=== PATIENT | female | born 1960 | race Caucasian/White ===

== ENCOUNTER 2018-10-08 03:07 | Inpatient (IN) | payer BC ==
[2018-10-08] MEDS ORDERED: SODIUM CHLORIDE 0.9% 1,000 ML IV STA (03:14)
[2018-10-08] MEDS ORDERED: NALOXONE 0.4 MG/ML 1 ML VIAL IV PRN ×2 (03:35→14:06)
[2018-10-08 03:51] LABS: Appearance,Urine Clear (Clear); Basophils % (A) 0 %; Bilirubin,Urine Negative (Negative); Blood,Urine Negative (Negative); Color,Urine Light Yellow; Eosinophils # (A) 0.5 k/uL (0-0.7); Eosinophils % (A) 4 %; Glucose,Urine (UA) Negative (Negative); HCT 37.5 % (34.0-46.0); HGB 12.7 gm/dL (11.4-16.0); Ketones,Urine Negative (Negative); Leukocyte Esterase,Urine Negative (Negative); Lymphocytes # (A) 1.3 k/uL (1.0-4.8); Lymphocytes % (A) 12 %; MCH 30.2 pg (25.0-35.0); MCHC 33.9 g/dL (31.0-37.0); MCV 89.1 fL (80.0-100.0); Mean Platelet Volume 5.9; Monocytes # (A) 0.3 k/uL (0-1.0); Monocytes % (A) 3 %; Neutrophils # (A) 8.9 k/uL (1.3-7.7); Neutrophils % (A) 80 %; Nitrite,Urine Negative (Negative); PH, Urine 6.5 (5.0-8.0); Platelet Count 287 k/uL (150-450); Protein,Urine Negative (Negative); RBC 4.21 m/uL (3.80-5.40); RDW 13.4 % (11.5-15.5); Specific Gravity,Urine 1.018 (1.001-1.035); Urobilinogen,Urine <2.0 mg/dL (<2.0); WBC 11.1 k/uL (3.8-10.6)
[2018-10-08 03:59] LABS: ALT 30 U/L (9-52); AST 21 U/L (14-36); Albumin 3.9 g/dL (3.5-5.0); Alkaline Phosphatase 31 U/L (38-126); Anion Gap 8 mmol/L; Blood Urea Nitrogen 13 mg/dL (7-17); Calcium 8.9 mg/dL (8.4-10.2); Carbon Dioxide 26 mmol/L (22-30); Chloride 107 mmol/L (98-107); Glucose 105 mg/dL (74-99); Lipase 61 U/L (23-300); Sodium 141 mmol/L (137-145); Total Bilirubin 0.5 mg/dL (0.2-1.3); Total Protein 6.3 g/dL (6.3-8.2)
[2018-10-08] MEDS ORDERED: MORPHINE SULFATE 4 MG/ML SYRINGE IV PRN (04:02)
[2018-10-08] MEDS ORDERED: ONDANSETRON 4 MG/2 ML VIAL IVP PRN (04:02)
[2018-10-08 04:03] LABS: INR 0.9 (<1.2); Partial Thromboplastin Time 22.9 sec (22.0-30.0); Prothrombin Time 10.1 sec (9.0-12.0)
--- NOTE | 2018-10-08 04:15 | ED ---
Abdominal Pain HPI - General Chief Complaint: Abdominal Pain Stated Complaint: Abdominal Pain Time Seen by Provider: 10/08/18 03:13 Source: patient Mode of arrival: EMS - History of Present Illness Initial Comments: Crystal is a pleasant 57-year-old female who was transferred to our facility from an outside emergency department for further evaluation and management of perforated diverticulitis. Patient reports that she began having abdominal pain on Aug 23, on Aug 25 she saw her PCP and was given a clinical diagnosis of diverticulitis. She was prescribed antibiotics at that time which she completed. Patient reports that on Sep 25 she again developed lower abdominal pain identical to previous, she again saw her PCP and was prescribed Cipro/ Flagyl. She took both for 7 days but discontinued the Flagyl due to GI upset, she completed the final dose of Cipro on 10/06. Patient reports that on October 07 she was driving to get her taxes done and she developed severe worsening of her abdominal pain, pain was in the same lower abdominal location is her diverticulitis. Patient called her primary care physician who advised her to seek care in the nearest emergency department. Patient saw an outside facility where labs were unremarkable but computed tomography scan revealed descending colon diverticulitis with microperforations and scattered free air with no evidence of abscess. Patient was given IV Cipro and Flagyl and per her request transferred to our facility for further management. - Related Data Allergies Allergy/AdvReac Type Severity Reaction Status Date / Time No Known Allergies Allergy Verified 10/08/18 03:56 Review of Systems ROS Statement: Those systems with pertinent positive or pertinent negative responses have been documented in the HPI. ROS Other: All systems not noted in ROS Statement are negative. Past Medical History Past Medical History: Hypertension History of Any Multi-Drug Resistant Organisms: None Reported Past Surgical History: Cholecystectomy Additional Past Surgical History / Comment(s): Right shoulder surgery, bilat wrist surgery Past Psychological History: No Psychological Hx Reported Smoking Status: Never smoker Past Alcohol Use History: None Reported Past Drug Use History: None Reported General Exam - General Exam Comments Initial Comments: Physical Exam GENERAL: Patient is well-developed and well-nourished. Patient is nontoxic and well- hydrated and is in no distress. HENT: Normocephalic, Atraumatic. EYES: PERRL, EOMI PULMONARY: Unlabored respirations. No audible rales rhonchi or wheezing was noted. CARDIOVASCULAR: There is a regular rate and rhythm without any murmurs gallops or rubs. ABDOMEN: Soft, normal active bowel sounds Tenderness to palpation left lower quadrant SKIN: Skin is clear with no lesions or rashes and otherwise unremarkable. : Deferred NEUROLOGIC: Patient is alert and oriented x3. Moving all extremities spontaneously MUSCULOSKELETAL: Normal extremities with adequate strength and full range of motion. No lower extremity swelling or edema. No calf tenderness. PSYCHIATRIC: Normal psychiatric evaluation. Limitations: no limitations Course Vital Signs 10/08/18 03:12 Temperature 98.9 F Pulse Rate 80 Respiratory 19 Rate Blood Pressure 160/99 O2 Sat by Pulse 95 Oximetry Medical Decision Making - Medical Decision Making Patient care was discussed with the transferring physician patient with CT confirmed perforated diverticulitis patient with no Sirs criteria pain is well managed patient received IV antibiotics prior to transfer Patient was seen and evaluated upon arrival, patient's pain is well-controlled, she is non-peritoneal Repeat labs were ordered Patient care was discussed with general surgeon intervention nurse Dr. Esposito who recommends admission to medicine with him on consult. Recommends medical management at this time as the patient appears well, is ambulatory and not peritoneal on exam. Admission orders placed - Lab Data Result diagrams: 10/08/18 03:39 10/08/18 03:39 Disposition Clinical Impression: Diverticulitis, Perforated diverticulum of large intestine Disposition: ADMITTED IP TO THIS HOSP Condition: Stable Is patient prescribed a controlled substance at d/c from ED?: No
[2018-10-08] MEDS ORDERED: HYDROmorphone 0.5 MG/0.5 ML SYRINGE IVP PRN (09:30)
[2018-10-08] MEDS: PIPERACILLIN-TAZOBACTAM 3.375 GM in SODIUM CHLORIDE 0.9% 100 ML IVPB SCH ×3 (10:08→23:33)
--- NOTE | 2018-10-08 10:32 | P.HPIM ---
History of Present Illness This is a pleasant 57 years old female with past medical history of hypertension , sleep apnea on CPAP, cholecystectomy and diverticulitis, never smoked. Patient Presents because of left lower quadrant abdominal pain that started yesterday at 5:30 PM as per patient. Patient describes the pain as sharp in LLQ , nonradiating, moderate to severe, however as per patient and the pain started as 2/10 in severity yesterday and this morning is getting worse about 6-8/10 in severity no nausea vomiting, no diarrhea. No chest pain or dyspnea. No dizziness. Patient went to urgent care in [place], [place] and there she had CAT scan of the abdomen where the report states perforated descending colon diverticulitis with a small free fluid and scattered free air so patient was transferred to [facility]. In [facility] emergency room, patient was ambulatory with no peritoneal signs on physical examination as per emergency room note, however apparently this morning its getting worse and on my examination patient has left lower quadrant tenderness with rebound tenderness, without guarding. And morphine was not helping her so we increased her pain medication to Dilaudid, antibiotic was started as per surgical team recommendation. I discussed the case with Dr. lanza and he kindly took note of it and he'll come and evaluate the patient soon Patient states that her first episode of diverticulitis was in 08/25/2018, when she was treated with antibiotic, and she was improving until she has another episode and 09/27/2018 and she was improving with antibiotics again thoroughly yesterday when the pain returned to her and that's when she came to seek medical advice and her doctor advised her to go to emergency room. Review of Systems CONSTITUTIONAL: No fever, no malaise, no fatigue. HEENT: No recent visual problems or hearing problems. Denied any sore throat. CARDIOVASCULAR: No orthopnea, PND, no palpitations, no syncope. PULMONARY: No shortness of breath, no cough, no hemoptysis. GASTROINTESTINAL: No diarrhea NEUROLOGICAL: No headaches, no weakness, no numbness. HEMATOLOGICAL: Denies any bleeding or petechiae. GENITOURINARY: Denies any burning micturition, frequency, or urgency. MUSCULOSKELETAL/RHEUMATOLOGICAL: Denies any joint pain, swelling, or any muscle pain. ENDOCRINE: Denies any polyuria or polydipsia. Past Medical History Past Medical History: Hypertension History of Any Multi-Drug Resistant Organisms: None Reported Past Surgical History: Cholecystectomy Additional Past Surgical History / Comment(s): Right shoulder surgery, bilat wrist surgery Past Psychological History: No Psychological Hx Reported Smoking Status: Never smoker Past Alcohol Use History: None Reported Past Drug Use History: None Reported - Past Family History Mother Family Medical History: Cancer Additional Family Medical History / Comment(s): bile duct cancer, diverticulitis Medications and Allergies Home Medications Medication Instructions Recorded Confirmed Type Fluticasone Nasal [place] [Flonase 2 spr EA NOSTRIL HS 10/08/18 10/08/18 History Nasal [place]] Ibuprofen [Motrin Ib] 600 mg PO Q6H PRN 10/08/18 10/08/18 History Loratadine [Claritin] 10 mg PO DAILY 10/08/18 10/08/18 History Melatonin 5 mg PO HS 10/08/18 10/08/18 History Allergies Allergy/AdvReac Type Severity Reaction Status Date / Time No Known Allergies Allergy Verified 10/08/18 07:58 Physical Exam Vitals: Vital Signs Temp Pulse Pulse Resp BP BP Pulse Ox 10/08/18 07:02 98.2 F 72 16 137/80 98 10/08/18 04:24 97.7 F 10/08/18 04:19 98.0 F 75 16 153/94 97 10/08/18 04:10 75 19 140/90 96 10/08/18 03:50 70 16 139/92 94 L 10/08/18 03:12 98.9 F 80 19 160/99 95 10/08/18 03:11 160/99 97 Intake and Output 10/07/18 10/08/18 10/08/18 22:59 06:59 14:59 Other: Voiding Method Toilet Weight 71.668 kg GENERAL: The patient is alert and oriented x3, not in any acute distress. Well developed, well nourished. HEENT: Pupils are round and equally reacting to light. EOMI. No scleral icterus. No conjunctival pallor. Normocephalic, atraumatic. No pharyngeal erythema. No thyromegaly. CARDIOVASCULAR: S1 and S2 present. No murmurs, rubs, or gallops. PULMONARY: Chest is clear to auscultation, no wheezing or crackles. ABDOMEN: Soft, left lower quadrant tenderness, with rebound tenderness, no guarding, nondistended, normoactive bowel sounds. No palpable organomegaly. MUSCULOSKELETAL: No joint swelling or deformity. EXTREMITIES: No cyanosis, clubbing, or pedal edema. NEUROLOGICAL: Gross neurological examination did not reveal any focal deficits. SKIN: No rashes. Results CBC & Chem 7: 10/08/18 03:39 10/08/18 03:39 Labs: Abnormal Lab Results - Last 24 Hours (Table) 10/08/18 10/08/18 Range/Units 03:39 03:39 WBC 11.1 H (3.8-10.6) k/uL Neutrophils # 8.9 H (1.3-7.7) k/uL Glucose 105 H (74-99) mg/dL Alkaline Phosphatase 31 L (38-126) U/L Thrombosis Risk Factor Assmnt - Choose All That Apply Any of the Below Risk Factors Present?: Yes Each Factor Represents 1 point: Age 41-60 years Thrombosis Risk Factor Assessment Total Risk Factor Score: 1 Thrombosis Risk Factor Assessment Level: Low Risk Assessment and Plan Assessment: Possible perforated diverticulitis Worsening pain, secondary to above Recurrent diverticulitis History of hypertension, history of sleep apnea on CPAP at home History of cholecystectomy Never smoked Plan: This is a pleasant 57 years old female who presents because of perforated diverticulitis. Call surgical consult. Keep nothing by mouth, continue with IV fluids, increased pain medication and given Dilaudid as morphine is not helping the patient. I agree with the Zosyn as recommended by the surgical service.Labs and medication were reviewed.. Continue same treatment. Continue with symptomatic treatment. Resume home medication. Monitor lytes and vitals. DVT and GI prophylaxis. Further recommendations of the clinical course of the patient DVT prophylaxis: Subcutaneous heparin GI Prophylaxis: Pepcid Prognosis is guarded
--- NOTE | 2018-10-08 13:07 | P.GSCN ---
History of Present Illness Consult date: 10/08/18 History of present illness: This is a 57-year-old female who presented as a transfer from an outside facility for acute diverticulitis. She states that she's been having left lower quadrant pain since August for she had been being treated multiple times as an outpatient with antibiotic therapy which she failed. She states that over the last 24-48 hours her pain became acutely much worse she denies fevers she denies chills she denies any nausea vomiting she's never had attacks like this before in the past or last colonoscopy was 10 years ago she states it was normal at that time. She denies any bleeding her only past abdominal surgical history is a cholecystectomy. She states that her pain has never really gotten better since August 23. On computed tomography scan performed at outside facility there was acute diverticulitis with perforation and free air noted around the sigmoid colon. Past Medical History Past Medical History: Hypertension History of Any Multi-Drug Resistant Organisms: None Reported Past Surgical History: Cholecystectomy Additional Past Surgical History / Comment(s): Right shoulder surgery, bilat wrist surgery Past Psychological History: No Psychological Hx Reported Smoking Status: Never smoker Past Alcohol Use History: None Reported Past Drug Use History: None Reported - Past Family History Mother Family Medical History: Cancer Additional Family Medical History / Comment(s): bile duct cancer, diverticulitis Medications and Allergies Home Medications Medication Instructions Recorded Confirmed Type Fluticasone Nasal [place] [Flonase 2 spr EA NOSTRIL HS 10/08/18 10/08/18 History Nasal [place]] Ibuprofen [Motrin Ib] 600 mg PO Q6H PRN 10/08/18 10/08/18 History Loratadine [Claritin] 10 mg PO DAILY 10/08/18 10/08/18 History Melatonin 5 mg PO HS 10/08/18 10/08/18 History Allergies Allergy/AdvReac Type Severity Reaction Status Date / Time No Known Allergies Allergy Verified 10/08/18 07:58 Surgical - Exam Osteopathic Statement: *. No significant issues noted on an osteopathic structural exam other than those noted in the History and Physical/Consult. Vital Signs BP Pulse Ox 160/99 97 10/08/18 03:11 10/08/18 03:11 - General well developed, well nourished, moderate distress, moderate pain - Eyes PERRL - Neck trachea midline - Respiratory normal expansion, normal respiratory effort - Cardiovascular Rhythm: regular - Abdomen Soft nondistended acute left lower quadrant tenderness palpation with rebound tenderness. No rigidity - Psychiatric oriented to time, oriented to person, oriented to place Results - Labs 10/08/18 03:39 10/08/18 03:39 Abnormal Lab Results - Last 24 Hours (Table) 10/08/18 10/08/18 Range/Units 03:39 03:39 WBC 11.1 H (3.8-10.6) k/uL Neutrophils # 8.9 H (1.3-7.7) k/uL Glucose 105 H (74-99) mg/dL Alkaline Phosphatase 31 L (38-126) U/L Diabetes panel 10/08/18 Range/Units 03:39 Sodium 141 (137-145) mmol/L Potassium 4.0 (3.5-5.1) mmol/L Chloride 107 (98-107) mmol/L Carbon Dioxide 26 (22-30) mmol/L BUN 13 (7-17) mg/dL Creatinine 0.54 (0.52-1.04) mg/dL Glucose 105 H (74-99) mg/dL Calcium 8.9 (8.4-10.2) mg/dL AST 21 (14-36) U/L ALT 30 (9-52) U/L Alkaline Phosphatase 31 L (38-126) U/L Total Protein 6.3 (6.3-8.2) g/dL Albumin 3.9 (3.5-5.0) g/dL Calcium panel 10/08/18 Range/Units 03:39 Calcium 8.9 (8.4-10.2) mg/dL Albumin 3.9 (3.5-5.0) g/dL Pituitary panel 10/08/18 Range/Units 03:39 Sodium 141 (137-145) mmol/L Potassium 4.0 (3.5-5.1) mmol/L Chloride 107 (98-107) mmol/L Carbon Dioxide 26 (22-30) mmol/L BUN 13 (7-17) mg/dL Creatinine 0.54 (0.52-1.04) mg/dL Glucose 105 H (74-99) mg/dL Calcium 8.9 (8.4-10.2) mg/dL Adrenal panel 10/08/18 Range/Units 03:39 Sodium 141 (137-145) mmol/L Potassium 4.0 (3.5-5.1) mmol/L Chloride 107 (98-107) mmol/L Carbon Dioxide 26 (22-30) mmol/L BUN 13 (7-17) mg/dL Creatinine 0.54 (0.52-1.04) mg/dL Glucose 105 H (74-99) mg/dL Calcium 8.9 (8.4-10.2) mg/dL Total Bilirubin 0.5 (0.2-1.3) mg/dL AST 21 (14-36) U/L ALT 30 (9-52) U/L Alkaline Phosphatase 31 L (38-126) U/L Total Protein 6.3 (6.3-8.2) g/dL Albumin 3.9 (3.5-5.0) g/dL Assessment and Plan Assessment: Perforated diverticulitis Plan: I lengthy discussion with the patient and the patient's regarding her diagnosis. She does have peritoneal signs and acute abdomen at this time. Given that she failed outpatient antibiotic therapy and she has free air and acute sigmoid diverticulitis I discussed with her exploratory laparotomy with possible partial colectomy with end colostomy formation. I discussed with her the risks benefits and alternatives to this procedure and I discussed with her in detail about the possibility of a colostomy being likely. She stated she understood this and agreed and consented. She will be kept nothing by mouth, started on IV fluids, started on IV antibiotics and pain control. Plan for OR today.
[2018-10-08] MEDS ORDERED: MIDAZOLAM 2 MG/2 ML VIAL IVP ONE (13:30)
[2018-10-08] MEDS ORDERED: fentaNYL (PF) 50 MCG/ML 2 ML AMP IVP ONE (13:35)
[2018-10-08] MEDS ORDERED: ePHEDrine SULFATE/0.9% NACL/PF 50 MG/5 ML SYRINGE IV ONE (13:59)
[2018-10-08] MEDS ORDERED: PROPOFOL 10 MG/ML 20 ML VIAL IV ONE (13:59)
[2018-10-08] MEDS ORDERED: ROCURONIUM BROMIDE 10 MG/ML 10 ML VIAL IV ONE (13:59)
[2018-10-08] MEDS ORDERED: SUCCINYLCHOLINE CHLORIDE 100 MG/5 ML SYR IV ONE (13:59)
[2018-10-08] MEDS ORDERED: NEOSTIGMINE 1 MG/ML 10 ML VIAL ONE (13:59)
[2018-10-08] MEDS ORDERED: LIDOCAINE 1% INJ 10MG/ML (20 ML MDV) ONE (13:59)
[2018-10-08] MEDS ORDERED: PHENYLEPHRINE-0.9% NACL SYG 1 MG/10 ML SYRINGE ONE (13:59)
[2018-10-08] MEDS ORDERED: GLYCOPYRROLATE 0.2 MG/ML 2 ML VIAL ONE (13:59)
[2018-10-08] MEDS ORDERED: HEPARIN SODIUM,PORCINE 5,000 UNIT/ML 1 ML VIAL ONE (13:59)
[2018-10-08] MEDS ORDERED: IV FLUID CONTINUATION 1,000 ML IV ONE (14:03)
[2018-10-08] MEDS ORDERED: NALBUPHINE 10 MG/ML (1 ML AMP) IV PRN (14:06)
[2018-10-08] MEDS ORDERED: LACTATED RINGERS 1,000 ML IV ONE ×4 (14:15→17:15)
--- NOTE | 2018-10-08 16:37 | P.OP ---
Date of Procedure: 10/08/18 Preoperative Diagnosis: Perforated diverticulitis Postoperative Diagnosis: Same Anesthesia: GETA Surgeon: Syed Esposito Condition: stable Disposition: PACU Description of Procedure: Patient was brought into the operative suite remained supine position when general endotracheal anesthesia per Department of anesthesia she was prepped and draped in usual sterile fashion timeout performed correct patient correct procedure correct site was verified a midline incision was made carried down to the fascia which was incised in the usual fashion the small bowel was packed out of the way after being run from the ligament of Treitz to the cecum there is no abnormalities noted in the small bowel. There was purulent drainage noted down in the left lower quadrant with phlegmon. There was a perforation noted in the proximal sigmoid colon. The sigmoid colon was freed up from its peritoneal attachments along the white line of T[place]t and the splenic flexure was taken down. An area of healthy proximal sigmoid colon was stapled across a 60 mm Endo SABRINA stapler and incentive devices used to resect the mesentery along the colon distally until healthy segment of sigmoid colon at the rectosigmoid junction was identified in stable dressing a 60 mm Endo SABRINA stapler. The specimen was removed. A 3 cm circular incision was made in the left rectus and the proximal segment of colon was brought up through this 3 fingerbreadths were previously passed through. The abdomen was then copiously irrigated and suctioned there was also a 2-0 nylon stitch placed as a marking stitch on the distal segment along the staple line. The abdomen was then closed the fascia was closed with looped 1 PDS sutures in a running fashion followed by skin jordan the ostomy was matured with 3-0 Vicryl sutures for brooking stitches followed by interrupted stitches. Ostomy appliance was applied sterile dressing was also applied patient tolerated procedure well no apparent complications
[2018-10-08] MEDS ORDERED: ONDANSETRON 4 MG/2 ML VIAL IVP ONE (17:10)
[2018-10-08] MEDS: ROPIVACAINE 300 MG, HYDROMORPHONE (PF) 5 MG in SODIUM CHLORIDE 0.9% 190 ML EPIDURAL PRN (17:34)
[2018-10-08] MEDS: diphenhydrAMINE 50 MG/ML 1 ML VIAL IVP PRN ×2 (17:43→23:33)
[2018-10-08 18:03] LABS: Basophils % (A) 0 %; Eosinophils # (A) 0.1 k/uL (0-0.7); Eosinophils % (A) 1 %; HCT 37.7 % (34.0-46.0); HGB 12.3 gm/dL (11.4-16.0); Lymphocytes % (A) 10 %; MCH 29.8 pg (25.0-35.0); MCHC 32.5 g/dL (31.0-37.0); MCV 91.5 fL (80.0-100.0); Mean Platelet Volume 6.6; Monocytes # (A) 0.3 k/uL (0-1.0); Monocytes % (A) 2 %; Neutrophils # (A) 8.9 k/uL (1.3-7.7); Neutrophils % (A) 86 %; Platelet Count 280 k/uL (150-450); RBC 4.12 m/uL (3.80-5.40); RDW 13.5 % (11.5-15.5); WBC 10.3 k/uL (3.8-10.6)
[2018-10-08 18:24] LABS: Anion Gap 6 mmol/L; Blood Urea Nitrogen 8 mg/dL (7-17); Calcium 8.5 mg/dL (8.4-10.2); Carbon Dioxide 31 mmol/L (22-30); Chloride 105 mmol/L (98-107); Glucose 104 mg/dL (74-99); Potassium 3.4 mmol/L (3.5-5.1); Sodium 142 mmol/L (137-145)
[2018-10-08] MEDS ORDERED: SODIUM CHLORIDE 0.9% 500 ML 500 ML IV ONE (20:50)
[2018-10-08 21:32] LABS: Basophils % (A) 0 %; Eosinophils # (A) 0.1 k/uL (0-0.7); Eosinophils % (A) 1 %; HCT 37.6 % (34.0-46.0); HGB 12.4 gm/dL (11.4-16.0); Lymphocytes # (A) 0.5 k/uL (1.0-4.8); Lymphocytes % (A) 6 %; MCH 30.2 pg (25.0-35.0); MCV 91.3 fL (80.0-100.0); Mean Platelet Volume 5.9; Monocytes # (A) 0.3 k/uL (0-1.0); Monocytes % (A) 3 %; Neutrophils % (A) 89 %; Platelet Count 266 k/uL (150-450); RBC 4.12 m/uL (3.80-5.40); RDW 13.4 % (11.5-15.5)
[2018-10-08] MEDS: FAMOTIDINE 20 MG/2 ML VIAL IV SCH (21:39)
[2018-10-08] MEDS: LACTATED RINGERS 1,000 ML IV SCH ×2 (21:39→23:33)
[2018-10-08] MEDS: HEPARIN SODIUM,PORCINE 5,000 UNIT/ML 1 ML VIAL SQ SCH (23:33)
[2018-10-09] MEDS: HYDROmorphone 0.5 MG/0.5 ML SYRINGE IVP PRN ×2 (02:30→05:32)
[2018-10-09] MEDS: LACTATED RINGERS 1,000 ML IV SCH ×3 (07:33→20:37)
[2018-10-09] MEDS: PIPERACILLIN-TAZOBACTAM 3.375 GM in SODIUM CHLORIDE 0.9% 100 ML IVPB SCH ×2 (07:34→15:58)
[2018-10-09] MEDS: FAMOTIDINE 20 MG/2 ML VIAL IV SCH ×2 (07:34→19:56)
[2018-10-09] MEDS: HEPARIN SODIUM,PORCINE 5,000 UNIT/ML 1 ML VIAL SQ SCH ×2 (07:34→15:58)
[2018-10-09 08:38] LABS: Basophils % (A) 0 %; Eosinophils # (A) 0.1 k/uL (0-0.7); Eosinophils % (A) 1 %; HCT 35.4 % (34.0-46.0); HGB 11.4 gm/dL (11.4-16.0); Lymphocytes # (A) 0.5 k/uL (1.0-4.8); Lymphocytes % (A) 7 %; MCH 29.8 pg (25.0-35.0); MCHC 32.2 g/dL (31.0-37.0); MCV 92.3 fL (80.0-100.0); Mean Platelet Volume 6.6; Monocytes # (A) 0.3 k/uL (0-1.0); Monocytes % (A) 4 %; Neutrophils # (A) 6.9 k/uL (1.3-7.7); Neutrophils % (A) 87 %; Platelet Count 251 k/uL (150-450); RBC 3.84 m/uL (3.80-5.40); RDW 13.6 % (11.5-15.5)
[2018-10-09 08:47] LABS: Anion Gap 4 mmol/L; Blood Urea Nitrogen 7 mg/dL (7-17); Calcium 8.2 mg/dL (8.4-10.2); Carbon Dioxide 33 mmol/L (22-30); Chloride 101 mmol/L (98-107); Glucose 111 mg/dL (74-99); Potassium 3.8 mmol/L (3.5-5.1); Sodium 138 mmol/L (137-145)
[2018-10-09] MEDS ORDERED: HEPARIN SODIUM,PORCINE 5,000 UNIT/ML 1 ML VIAL SQ SCH (09:00)
[2018-10-09] MEDS: FLUTICASONE 50MCG/SPRAY NASAL 16GM EA NOSTRIL SCH (14:18)
[2018-10-09] MEDS: ROPIVACAINE 300 MG, HYDROMORPHONE (PF) 5 MG in SODIUM CHLORIDE 0.9% 190 ML EPIDURAL PRN (14:19)
[2018-10-09] MEDS: diphenhydrAMINE 50 MG/ML 1 ML VIAL IVP PRN (14:19)
--- NOTE | 2018-10-09 15:27 | P.PN ---
Progress Note - Text Progress Note Date: 10/09/18 57-year-old female status post exploratory laparotomy with colostomy creation. Postop day #1, epidural catheter day #2. Patient doing well today sitting in her chair VAS is a 2-4-10 in severity. Epidural rate is at 8 ML's an hour he would empty stable she's been up with no motor sensory deficits. Continue epidural infusion at current settings.
--- NOTE | 2018-10-09 15:53 | P.PN ---
Subjective This is a pleasant 57 years old female with past medical history of hypertension , sleep apnea on CPAP, cholecystectomy and diverticulitis, never smoked. Patient Presents because of left lower quadrant abdominal pain that started yesterday at 5:30 PM as per patient. Patient describes the pain as sharp in LLQ , nonradiating, moderate to severe, however as per patient and the pain started as 2/10 in severity yesterday and this morning is getting worse about 6-8/10 in severity no nausea vomiting, no diarrhea. No chest pain or dyspnea. No dizziness. Patient went to urgent care in [place], [place] and there she had CAT scan of the abdomen where the report states perforated descending colon diverticulitis with a small free fluid and scattered free air so patient was transferred to [facility]. In [facility] emergency room, patient was ambulatory with no peritoneal signs on physical examination as per emergency room note, however apparently this morning its getting worse and on my examination patient has left lower quadrant tenderness with rebound tenderness, without guarding. And morphine was not helping her so we increased her pain medication to Dilaudid, antibiotic was started as per surgical team recommendation. I discussed the case with Dr. lanza and he kindly took note of it and he'll come and evaluate the patient soon Patient states that her first episode of diverticulitis was in 08/25/2018, when she was treated with antibiotic, and she was improving until she has another episode and 09/27/2018 and she was improving with antibiotics again thoroughly yesterday when the pain returned to her and that's when she came to seek medical advice and her doctor advised her to go to emergency room. 10/09/2018 Patient status post exploratory laparotomy , status post colostomy on LLQ, Postop day #1. Patient was found in bed, in [id number] distress due to pain, however she does not want any more pain medication, she is a little bit more tired and lethargic. She is complaining of from her nasal congestion and ask for her Flonase back. Also she still benefit from some itching in the back and distress been treated symptomatically with Benadryl. Surgical team are following the patient. Labs and Vitas looks stable. Objective - Vital Signs Vital signs: Vital Signs Temp 99.5 F 10/09/18 14:14 Pulse 88 10/09/18 14:14 Resp 18 10/09/18 14:14 BP 122/81 10/09/18 14:14 Pulse Ox 92 L 10/09/18 14:14 Intake & Output 10/08/18 10/09/18 10/09/18 18:59 06:59 18:59 Intake Total 2117 2225 Output Total 450 1550 900 Balance 1667 675 -900 Intake: IV 2117 Intake, IV Titration 2225 Amount Lactated Ringers 1,000 ml 1625 @ 125 mls/hr IV .Q8H ROSALIO Rx#:[id number] Piperacillin-Tazobactam 3 100 .375 gm In Sodium Chloride 0.9% 100 ml @ 25 mls/hr IVPB Q8HR ROSALIO Rx# :[id number] Sodium Chloride 0.9% 500 500 ml 500 ml @ 999 mls/hr IV .Q31M ONE Rx#:[id number] Output: Urine 350 1550 900 Estimated Blood Loss 100 Other: Voiding Method Toilet Toilet Indwelling Catheter - Labs CBC & Chem 7: 10/09/18 07:37 10/09/18 07:37 Labs: Abnormal Lab Results - Last 24 Hours (Table) 10/08/18 10/08/18 10/08/18 Range/Units 17:44 17:44 20:58 Neutrophils # 8.9 H 8.0 H (1.3-7.7) k/uL Lymphocytes # 0.5 L (1.0-4.8) k/uL Potassium 3.4 L (3.5-5.1) mmol/L Carbon Dioxide 31 H (22-30) mmol/L Glucose 104 H (74-99) mg/dL Calcium (8.4-10.2) mg/dL 10/09/18 10/09/18 Range/Units 07:37 07:37 Neutrophils # (1.3-7.7) k/uL Lymphocytes # 0.5 L (1.0-4.8) k/uL Potassium (3.5-5.1) mmol/L Carbon Dioxide 33 H (22-30) mmol/L Glucose 111 H (74-99) mg/dL Calcium 8.2 L (8.4-10.2) mg/dL Assessment and Plan Assessment: Possible perforated diverticulitis, status post exploratory laparotomy and LLQ colostomy History of Recurrent diverticulitis History of hypertension, history of sleep apnea on CPAP at home History of cholecystectomy Never smoked Plan: This is a pleasant 57 years old female who presents because of perforated diverticulitis. Call surgical consult. Keep nothing by mouth, continue with IV fluids, increased pain medication and given Dilaudid as morphine is not helping the patient. I agree with the Zosyn as recommended by the surgical service.Labs and medication were reviewed.. Continue same treatment. Continue with symptomatic treatment. Resume home medication. Monitor lytes and vitals. DVT and GI prophylaxis. Further recommendations of the clinical course of the patient DVT prophylaxis: Subcutaneous heparin GI Prophylaxis: Pepcid Prognosis is guarded
--- NOTE | 2018-10-09 18:21 | P.PN ---
Subjective Progress Note Date: 10/09/18 Patient doing well, no complaints. Pain well controlled. No NV. tolerating clears. Objective - Vital Signs Vital signs: Vital Signs Temp 99.5 F 10/09/18 14:14 Pulse 88 10/09/18 15:55 Resp 18 10/09/18 15:55 BP 122/81 10/09/18 14:14 Pulse Ox 92 L 10/09/18 14:14 Intake & Output 10/08/18 10/09/18 10/09/18 18:59 06:59 18:59 Intake Total 2117 2225 Output Total 450 1550 900 Balance 1667 675 -900 Intake: IV 2117 Intake, IV Titration 2225 Amount Lactated Ringers 1,000 ml 1625 @ 125 mls/hr IV .Q8H [facility] Rx#:[id number] Piperacillin-Tazobactam 3 100 .375 gm In Sodium Chloride 0.9% 100 ml @ 25 mls/hr IVPB Q8HR [facility] Rx# :[id number] Sodium Chloride 0.9% 500 500 ml 500 ml @ 999 mls/hr IV .Q31M [facility] Rx#:[id number] Output: Urine 350 1550 900 Estimated Blood Loss 100 Other: Voiding Method Toilet Toilet Indwelling Catheter - Constitutional General appearance: Present: cooperative - Respiratory Details: Nonlabored - Cardiovascular Rhythm: regular - Gastrointestinal Gastrointestinal Comment(s): S/NT/ND ostomy pink patent with sweat in bag - Labs CBC & Chem 7: 10/09/18 07:37 10/09/18 07:37 Labs: Abnormal Lab Results - Last 24 Hours (Table) 10/08/18 10/08/18 10/09/18 Range/Units 17:44 20:58 07:37 Neutrophils # 8.0 H (1.3-7.7) k/uL Lymphocytes # 0.5 L 0.5 L (1.0-4.8) k/uL Potassium 3.4 L (3.5-5.1) mmol/L Carbon Dioxide 31 H (22-30) mmol/L Glucose 104 H (74-99) mg/dL Calcium (8.4-10.2) mg/dL 10/09/18 Range/Units 07:37 Neutrophils # (1.3-7.7) k/uL Lymphocytes # (1.0-4.8) k/uL Potassium (3.5-5.1) mmol/L Carbon Dioxide 33 H (22-30) mmol/L Glucose 111 H (74-99) mg/dL Calcium 8.2 L (8.4-10.2) mg/dL Assessment and Plan Assessment: Perforated diverticulitis s/p ex lap with hartmanns procedure Plan: Clears as tolerated, cont abx, cont. IVF. Will advance diet as more bowel function returns
[2018-10-09] MEDS ORDERED: ACETAMINOPHEN TAB 325 MG TAB PO PRN (21:41)
--- NOTE | 2018-10-09 22:31 | XR ---
History: ITS.REASON XR Reason: fever Exam: XR CXR 2 VIEWS Comparison: None available FINDINGS: Patchy opacity right midlung may represent atelectasis or developing infiltrate. Possible very small right pleural effusion. Linear opacity left lung possible atelectasis. Cardiac and mediastinal contours appear within limits. Rightward scoliosis. IMPRESSION: Patchy opacity right midlung may represent atelectasis or developing infiltrate. Possible very small right pleural effusion. Linear opacity left lung possible atelectasis.
[2018-10-10] MEDS: LEVOFLOXACIN 500MG-D5W PMX 500 MG in DEXTROSE/WATER 1 100ML.BAG IVPB SCH ×2 (01:06→22:46)
[2018-10-10] MEDS: HEPARIN SODIUM,PORCINE 5,000 UNIT/ML 1 ML VIAL SQ SCH ×4 (01:07→23:55)
[2018-10-10] MEDS: LACTATED RINGERS 1,000 ML IV SCH ×5 (01:44→19:10)
[2018-10-10] MEDS: PIPERACILLIN-TAZOBACTAM 3.375 GM in SODIUM CHLORIDE 0.9% 100 ML IVPB SCH ×4 (02:25→23:55)
--- NOTE | 2018-10-10 06:16 | P.PN ---
Progress Note - Text Progress Note Date: 10/10/18 57-year-old female status post exporter laparotomy with colostomy. Postop day # 2 epidural catheter day #3. Patient doing well VAS 2-4-10 in severity. No motor sensory deficits. Patient is ambulating, taking when necessary medication as well. Continue epidural at current settings and discontinue tomorrow.
[2018-10-10 07:58] LABS: Anion Gap 5 mmol/L; Blood Urea Nitrogen 7 mg/dL (7-17); Calcium 8.2 mg/dL (8.4-10.2); Carbon Dioxide 33 mmol/L (22-30); Chloride 99 mmol/L (98-107); Glucose 104 mg/dL (74-99); Potassium 3.5 mmol/L (3.5-5.1); Sodium 137 mmol/L (137-145)
[2018-10-10 08:03] LABS: Basophils % (A) 0 %; Eosinophils # (A) 0.2 k/uL (0-0.7); Eosinophils % (A) 3 %; HCT 31.8 % (34.0-46.0); HGB 10.4 gm/dL (11.4-16.0); Lymphocytes # (A) 0.7 k/uL (1.0-4.8); Lymphocytes % (A) 10 %; MCHC 32.6 g/dL (31.0-37.0); MCV 91.8 fL (80.0-100.0); Monocytes # (A) 0.4 k/uL (0-1.0); Monocytes % (A) 5 %; Neutrophils # (A) 5.9 k/uL (1.3-7.7); Neutrophils % (A) 82 %; Platelet Count 201 k/uL (150-450); RBC 3.46 m/uL (3.80-5.40); RDW 13.4 % (11.5-15.5); WBC 7.2 k/uL (3.8-10.6)
[2018-10-10] MEDS: FAMOTIDINE 20 MG/2 ML VIAL IV SCH ×2 (08:06→20:29)
[2018-10-10] MEDS: diphenhydrAMINE 50 MG/ML 1 ML VIAL IVP PRN ×2 (08:07→20:28)
--- NOTE | 2018-10-10 11:59 | P.PN ---
Subjective Progress Note Date: 10/10/18 Patient doing well no NV, she did have some productive cough today. Gas in ostomy bag but only sweat no stool Objective - Vital Signs Vital signs: Vital Signs Temp 100.3 F H 10/10/18 07:09 Pulse 90 10/10/18 07:09 Resp 17 10/10/18 07:09 BP 116/73 10/10/18 07:09 Pulse Ox 95 10/10/18 07:09 Intake & Output 10/09/18 10/10/18 10/10/18 18:59 06:59 18:59 Output Total 900 1200 Balance -900 -1200 Output: Urine 900 1200 Other: Voiding Method Indwelling Catheter Indwelling Catheter - Constitutional General appearance: Present: cooperative - Respiratory Details: Nonlabored - Cardiovascular Rhythm: regular - Gastrointestinal Gastrointestinal Comment(s): Soft, nondistended, expected TTP. Dressing CDI. Ostomy pink and patent with gas in bag no stool - Psychiatric Psychiatric: Present: A&O x's 3 - Labs CBC & Chem 7: 10/10/18 06:45 10/10/18 06:45 Labs: Abnormal Lab Results - Last 24 Hours (Table) 10/10/18 10/10/18 Range/Units 06:45 06:45 RBC 3.46 L (3.80-5.40) m/uL Hgb 10.4 L (11.4-16.0) gm/dL Hct 31.8 L (34.0-46.0) % Lymphocytes # 0.7 L (1.0-4.8) k/uL Carbon Dioxide 33 H (22-30) mmol/L Glucose 104 H (74-99) mg/dL Calcium 8.2 L (8.4-10.2) mg/dL Assessment and Plan Assessment: Perforated diverticulitis s/p ex lap with hartmanns procedure Plan: Patient is doing well, she can maintain a clear liquid diet as tolerated until further bowel function returns and she gets more output from ostomy. Epidural managment per anesthesia, pain is well controlled. Encouraged IS and ambulation.
--- NOTE | 2018-10-10 13:51 | P.PN ---
Subjective This is a pleasant 57 years old female with past medical history of hypertension , sleep apnea on CPAP, cholecystectomy and diverticulitis, never smoked. Patient Presents because of left lower quadrant abdominal pain that started yesterday at 5:30 PM as per patient. Patient describes the pain as sharp in LLQ , nonradiating, moderate to severe, however as per patient and the pain started as 2/10 in severity yesterday and this morning is getting worse about 6-8/10 in severity no nausea vomiting, no diarrhea. No chest pain or dyspnea. No dizziness. Patient went to urgent care in [place], [place] and there she had CAT scan of the abdomen where the report states perforated descending colon diverticulitis with a small free fluid and scattered free air so patient was transferred to [facility]. In [facility] emergency room, patient was ambulatory with no peritoneal signs on physical examination as per emergency room note, however apparently this morning its getting worse and on my examination patient has left lower quadrant tenderness with rebound tenderness, without guarding. And morphine was not helping her so we increased her pain medication to Dilaudid, antibiotic was started as per surgical team recommendation. I discussed the case with Dr. lanza and he kindly took note of it and he'll come and evaluate the patient soon Patient states that her first episode of diverticulitis was in 08/25/2018, when she was treated with antibiotic, and she was improving until she has another episode and 09/27/2018 and she was improving with antibiotics again thoroughly yesterday when the pain returned to her and that's when she came to seek medical advice and her doctor advised her to go to emergency room. 10/09/2018 Patient status post exploratory laparotomy , status post colostomy on LLQ, Postop day #1. Patient was found in bed, in [id number] distress due to pain, however she does not want any more pain medication, she is a little bit more tired and lethargic. She is complaining of from her nasal congestion and ask for her Flonase back. Also she still benefit from some itching in the back and distress been treated symptomatically with Benadryl. Surgical team are following the patient. Labs and Vitas looks stable. 10/10/2018 Patient is more awake today, she has some cough with little productive phlegm. No chest pain or dyspnea. She has low-grade fever. Chest x-ray from yesterday showing right pulmonary infiltrate. Patient was on Zosyn, Levaquin was added. She is tolerating a clear liquid diet. She is passing gases only with no bowel movement. No leg pain but in the view of persistent fever we'll check Doppler to rule out DVT. Patient is already on DVT prophylaxis. Incentive spirometry is provided for the patient and encouraged to visit. Patient denies dizziness or headache. No weakness or abnormal sensation loss. WBC 7.2K, hemoglobin 10.4. Sodium 137, potassium 3.5. Creatinine 0.7. Glucose is controlled just above 100. Urinalysis last time check was not suspicious for infection. Review of systems CONSTITUTIONAL: No fever, no malaise, no fatigue. HEENT: No recent visual problems or hearing problems. Denied any sore throat. CARDIOVASCULAR: No orthopnea, PND, no palpitations, no syncope. PULMONARY: no hemoptysis. NEUROLOGICAL: No headaches, no weakness, no numbness. HEMATOLOGICAL: Denies any bleeding or petechiae. GENITOURINARY: Denies any burning micturition, frequency, or urgency. MUSCULOSKELETAL/RHEUMATOLOGICAL: Denies any joint pain, swelling, or any muscle pain. ENDOCRINE: Denies any polyuria or polydipsia. Medication: Tylenol, Benadryl, Pepcid, Flonase, heparin, Dilaudid, Ringer lactate, Levaquin, Zofran, Zosyn, ropivacaine. Objective - Vital Signs Vital signs: Vital Signs Temp 100.3 F H 10/10/18 07:09 Pulse 90 10/10/18 07:09 Resp 17 10/10/18 07:09 BP 116/73 10/10/18 07:09 Pulse Ox 95 10/10/18 07:09 Intake & Output 10/09/18 10/10/18 10/10/18 18:59 06:59 18:59 Intake Total 480 Output Total 900 1200 Balance -900 -1200 480 Intake: Oral 480 Output: Urine 900 1200 Other: Voiding Method Indwelling Catheter Indwelling Catheter - Exam GENERAL: The patient is alert and oriented x3, not in any acute distress. Well developed, well nourished. Her lethargy has resolved HEENT: Pupils are round and equally reacting to light. EOMI. No scleral icterus. No conjunctival pallor. Normocephalic, atraumatic. No pharyngeal erythema. No thyromegaly. CARDIOVASCULAR: S1 and S2 present. No murmurs, rubs, or gallops. PULMONARY: Chest is clear to auscultation, no wheezing or crackles. -ABDOMEN: Soft, left lower quadrant colostomy back with some dark-colored fluid in it. MUSCULOSKELETAL: No joint swelling or deformity. EXTREMITIES: No cyanosis, clubbing, or pedal edema. NEUROLOGICAL: Gross neurological examination did not reveal any focal deficits. SKIN: No rashes. - Labs CBC & Chem 7: 10/10/18 06:45 10/10/18 06:45 Labs: Abnormal Lab Results - Last 24 Hours (Table) 10/10/18 10/10/18 Range/Units 06:45 06:45 RBC 3.46 L (3.80-5.40) m/uL Hgb 10.4 L (11.4-16.0) gm/dL Hct 31.8 L (34.0-46.0) % Lymphocytes # 0.7 L (1.0-4.8) k/uL Carbon Dioxide 33 H (22-30) mmol/L Glucose 104 H (74-99) mg/dL Calcium 8.2 L (8.4-10.2) mg/dL Assessment and Plan Assessment: Possible perforated diverticulitis, status post exploratory laparotomy and LLQ colostomy History of Recurrent diverticulitis History of hypertension, history of sleep apnea on CPAP at home History of cholecystectomy Never smoked Plan: This is a pleasant 57 years old female who presents because of perforated diverticulitis. Call surgical consult. Keep nothing by mouth, continue with IV fluids, increased pain medication and given Dilaudid as morphine is not helping the patient. I agree with the Zosyn as recommended by the surgical service.Labs and medication were reviewed.. Continue same treatment. Continue with symptomatic treatment. Resume home medication. Monitor lytes and vitals. DVT and GI prophylaxis. Further recommendations of the clinical course of the patient DVT prophylaxis: Subcutaneous heparin GI Prophylaxis: Pepcid Prognosis is guarded
[2018-10-10] MEDS: ROPIVACAINE 300 MG, HYDROMORPHONE (PF) 5 MG in SODIUM CHLORIDE 0.9% 190 ML EPIDURAL PRN (15:31)
--- NOTE | 2018-10-10 19:03 | US ---
EXAMINATION TYPE: US venous doppler duplex LE BI DATE OF EXAM: 10/10/2018 3:03 PM COMPARISON: NONE CLINICAL HISTORY: 57-year-old female Rule out DVT. No leg complaints per patient, recent surgery. SIDE PERFORMED: Bilateral TECHNIQUE: The lower extremity deep venous system is examined utilizing real time linear array sonog aminata with graded compression, doppler sonography and color-flow sonography. VESSELS IMAGED: External Iliac Vein (EIV) Common Femoral Vein Deep Femoral Vein Greater Saphenous Vein * Femoral Vein Popliteal Vein Proximal Calf Veins (* superficial vessels) Right Leg: Negative for DVT Left Leg: Negative for DVT IMPRESSION: No evidence for DVT within the bilateral lower extremities imaged from the groin to the upper calves.
[2018-10-10] MEDS: FLUTICASONE 50MCG/SPRAY NASAL 16GM EA NOSTRIL SCH (20:29)
[2018-10-11] MEDS: LACTATED RINGERS 1,000 ML IV SCH ×4 (00:27→19:26)
[2018-10-11] MEDS: PIPERACILLIN-TAZOBACTAM 3.375 GM in SODIUM CHLORIDE 0.9% 100 ML IVPB SCH ×2 (08:39→16:38)
[2018-10-11] MEDS: FAMOTIDINE 20 MG/2 ML VIAL IV SCH ×2 (08:39→20:08)
[2018-10-11] MEDS: HEPARIN SODIUM,PORCINE 5,000 UNIT/ML 1 ML VIAL SQ SCH ×3 (08:39→23:32)
[2018-10-11] MEDS: diphenhydrAMINE 50 MG/ML 1 ML VIAL IVP PRN (08:49)
--- NOTE | 2018-10-11 11:53 | P.PN ---
Progress Note - Text Progress Note Date: 10/11/18 Epidural rounds Catheter date 3 Patient VAS 4 out of 10 well controlled Denies any major complaints besides pruritus at the site of insertion Primary team agreed to remove up until today Well bolus epidural with 80 mL epidural solution prior to removal Primary team to manage pain after
[2018-10-11] MEDS ORDERED: diphenhydrAMINE 25 MG CAP PO PRN (11:58)
[2018-10-11] MEDS: HYDROmorphone 0.5 MG/0.5 ML SYRINGE IVP PRN ×2 (16:38→23:48)
--- NOTE | 2018-10-11 17:15 | P.PN ---
Subjective Progress Note Date: 10/11/18 Patient doing well no NV, tolerating diet Gas in ostomy bag. Epidural DCed, tolerating pain Objective - Vital Signs Vital signs: Vital Signs Temp 98.4 F 10/11/18 15:07 Pulse 73 10/11/18 15:07 Resp 16 10/11/18 15:07 BP 138/87 10/11/18 15:07 Pulse Ox 96 10/11/18 15:07 Intake & Output 10/10/18 10/11/18 10/11/18 18:59 06:59 18:59 Intake Total 1481.6 296 Output Total 1400 Balance 1481.6 -1400 296 Intake: Intake, IV Titration 201.6 Amount Ropivacaine 300 mg 201.6 Hydromorphone (Pf) 5 mg In Sodium Chloride 0.9% 190 ml @ Per Protocol EPIDURAL .Q0M PRN Rx#: [id number] Oral 1280 296 Output: Urine 1400 Uretheral ([place]) 1400 Other: Voiding Method Indwelling Catheter Indwelling Catheter - Constitutional General appearance: Present: cooperative - Cardiovascular Rhythm: regular - Gastrointestinal Gastrointestinal Comment(s): Soft, ND, NT Ostomy pink and patent with gas in bag - Psychiatric Psychiatric: Present: A&O x's 3 - Labs CBC & Chem 7: 10/10/18 06:45 10/10/18 06:45 Labs: Microbiology - Last 24 Hours (Table) 10/09/18 22:48 Blood Culture - Preliminary Blood No Growth after 24 hours Assessment and Plan Assessment: Perforated diverticulitis s/p ex lap with hartmanns procedure Plan: Patient is doing well, she advance diet to soft. Epidural DCed, DC nettles, KVO IVF, pain is well controlled. Encouraged IS and ambulation.
--- NOTE | 2018-10-11 19:29 | P.PN ---
Subjective This is a pleasant 57 years old female with past medical history of hypertension , sleep apnea on CPAP, cholecystectomy and diverticulitis, never smoked. Patient Presents because of left lower quadrant abdominal pain that started yesterday at 5:30 PM as per patient. Patient describes the pain as sharp in LLQ , nonradiating, moderate to severe, however as per patient and the pain started as 2/10 in severity yesterday and this morning is getting worse about 6-8/10 in severity no nausea vomiting, no diarrhea. No chest pain or dyspnea. No dizziness. Patient went to urgent care in [place], [place] and there she had CAT scan of the abdomen where the report states perforated descending colon diverticulitis with a small free fluid and scattered free air so patient was transferred to [facility]. In [facility] emergency room, patient was ambulatory with no peritoneal signs on physical examination as per emergency room note, however apparently this morning its getting worse and on my examination patient has left lower quadrant tenderness with rebound tenderness, without guarding. And morphine was not helping her so we increased her pain medication to Dilaudid, antibiotic was started as per surgical team recommendation. I discussed the case with Dr. lanza and he kindly took note of it and he'll come and evaluate the patient soon Patient states that her first episode of diverticulitis was in 08/25/2018, when she was treated with antibiotic, and she was improving until she has another episode and 09/27/2018 and she was improving with antibiotics again thoroughly yesterday when the pain returned to her and that's when she came to seek medical advice and her doctor advised her to go to emergency room. 10/09/2018 Patient status post exploratory laparotomy , status post colostomy on LLQ, Postop day #1. Patient was found in bed, in [id number] distress due to pain, however she does not want any more pain medication, she is a little bit more tired and lethargic. She is complaining of from her nasal congestion and ask for her Flonase back. Also she still benefit from some itching in the back and distress been treated symptomatically with Benadryl. Surgical team are following the patient. Labs and Vitas looks stable. 10/10/2018 Patient is more awake today, she has some cough with little productive phlegm. No chest pain or dyspnea. She has low-grade fever. Chest x-ray from yesterday showing right pulmonary infiltrate. Patient was on Zosyn, Levaquin was added. She is tolerating a clear liquid diet. She is passing gases only with no bowel movement. No leg pain but in the view of persistent fever we'll check Doppler to rule out DVT. Patient is already on DVT prophylaxis. Incentive spirometry is provided for the patient and encouraged to visit. Patient denies dizziness or headache. No weakness or abnormal sensation loss. WBC 7.2K, hemoglobin 10.4. Sodium 137, potassium 3.5. Creatinine 0.7. Glucose is controlled just above 100. Urinalysis last time check was not suspicious for infection. 10/11/2018 Patient continued to improve gradually, with less respiratory symptoms. No significant chest pain or dyspnea, however patient is developing a rash with [place] in the lower back and the upper thigh on the right side, patient received some Benadryl and by the time I saw the patient was improving. Patient was placed on hydrocortisone cream. No more fever in the last 24 hours. And no leukocytosis, symptoms are improving. Culture of the blood is negative so far. We'll continue with Levaquin while discontinue Zosyn. Surgical team are following the patient. Review of systems CONSTITUTIONAL: No fever, no malaise, no fatigue. HEENT: No recent visual problems or hearing problems. Denied any sore throat. CARDIOVASCULAR: No orthopnea, PND, no palpitations, no syncope. PULMONARY: no hemoptysis. NEUROLOGICAL: No headaches, no weakness, no numbness. HEMATOLOGICAL: Denies any bleeding or petechiae. GENITOURINARY: Denies any burning micturition, frequency, or urgency. MUSCULOSKELETAL/RHEUMATOLOGICAL: Denies any joint pain, swelling, or any muscle pain. ENDOCRINE: Denies any polyuria or polydipsia. Medication: Tylenol, Benadryl, Pepcid, Flonase, heparin, Dilaudid, Ringer lactate, Levaquin, Zofran, Zosyn, ropivacaine. Objective - Vital Signs Vital signs: Vital Signs Temp 98.4 F 10/11/18 15:07 Pulse 73 10/11/18 15:07 Resp 16 10/11/18 15:07 BP 138/87 10/11/18 15:07 Pulse Ox 96 10/11/18 15:07 Intake & Output 02/10/11/18 10/12/18 06:59 18:59 06:59 Intake Total 296 Output Total 1400 Balance -1400 296 Intake: Oral 296 Output: Urine 1400 Uretheral ([place]) 1400 Other: Voiding Method Indwelling Catheter Indwelling Catheter - Exam GENERAL: The patient is alert and oriented x3, not in any acute distress. Well developed, well nourished. Her lethargy has resolved HEENT: Pupils are round and equally reacting to light. EOMI. No scleral icterus. No conjunctival pallor. Normocephalic, atraumatic. No pharyngeal erythema. No thyromegaly. CARDIOVASCULAR: S1 and S2 present. No murmurs, rubs, or gallops. PULMONARY: Chest is clear to auscultation, no wheezing or crackles. -ABDOMEN: Soft, left lower quadrant colostomy back with some dark-colored fluid in it. MUSCULOSKELETAL: No joint swelling or deformity. EXTREMITIES: No cyanosis, clubbing, or pedal edema. NEUROLOGICAL: Gross neurological examination did not reveal any focal deficits. SKIN: No rashes. - Labs CBC & Chem 7: 10/10/18 06:45 10/10/18 06:45 Labs: Microbiology - Last 24 Hours (Table) 10/09/18 22:48 Blood Culture - Preliminary Blood No Growth after 24 hours Assessment and Plan Assessment: Possible perforated diverticulitis, status post exploratory laparotomy and LLQ colostomy History of Recurrent diverticulitis History of hypertension, history of sleep apnea on CPAP at home History of cholecystectomy Never smoked Plan: This is a pleasant 57 years old female who presents because of perforated diverticulitis. Call surgical consult. Keep nothing by mouth, continue with IV fluids, increased pain medication and given Dilaudid as morphine is not helping the patient. I agree with the Zosyn as recommended by the surgical service.Labs and medication were reviewed.. Continue same treatment. Continue with symptomatic treatment. Resume home medication. Monitor lytes and vitals. DVT and GI prophylaxis. Further recommendations of the clinical course of the patient DVT prophylaxis: Subcutaneous heparin GI Prophylaxis: Pepcid Prognosis is guarded
[2018-10-11] MEDS: FLUTICASONE 50MCG/SPRAY NASAL 16GM EA NOSTRIL SCH (20:09)
[2018-10-11] MEDS: HYDROcodone/APAP 5-325MG 1 EACH TAB PO PRN (20:15)
[2018-10-11] MEDS: HYDROCORTISONE 1% CREAM 30 GM TUBE TOPICAL PRN (21:49)
[2018-10-11] MEDS: LEVOFLOXACIN 500MG-D5W PMX 500 MG in DEXTROSE/WATER 1 100ML.BAG IVPB SCH (23:32)
[2018-10-12] MEDS: LACTATED RINGERS 1,000 ML IV SCH ×2 (00:47→04:20)
[2018-10-12] MEDS: HYDROmorphone 0.5 MG/0.5 ML SYRINGE IVP PRN ×3 (03:20→15:31)
[2018-10-12] MEDS: HYDROcodone/APAP 5-325MG 1 EACH TAB PO PRN ×4 (04:22→22:08)
[2018-10-12 09:00] LABS: Basophils % (A) 0 %; Eosinophils # (A) 0.4 k/uL (0-0.7); Eosinophils % (A) 8 %; HCT 32.9 % (34.0-46.0); HGB 10.7 gm/dL (11.4-16.0); Lymphocytes # (A) 0.6 k/uL (1.0-4.8); Lymphocytes % (A) 11 %; MCH 29.9 pg (25.0-35.0); MCHC 32.6 g/dL (31.0-37.0); MCV 91.8 fL (80.0-100.0); Mean Platelet Volume 6.8; Monocytes # (A) 0.3 k/uL (0-1.0); Monocytes % (A) 6 %; Neutrophils # (A) 3.9 k/uL (1.3-7.7); Neutrophils % (A) 74 %; Platelet Count 276 k/uL (150-450); RBC 3.59 m/uL (3.80-5.40); RDW 13.3 % (11.5-15.5); WBC 5.2 k/uL (3.8-10.6)
[2018-10-12] MEDS: FAMOTIDINE 20 MG/2 ML VIAL IV SCH ×2 (09:10→20:39)
[2018-10-12] MEDS: HEPARIN SODIUM,PORCINE 5,000 UNIT/ML 1 ML VIAL SQ SCH ×2 (09:10→15:31)
[2018-10-12 09:17] LABS: Anion Gap 5 mmol/L; Blood Urea Nitrogen 5 mg/dL (7-17); Calcium 8.9 mg/dL (8.4-10.2); Carbon Dioxide 36 mmol/L (22-30); Chloride 100 mmol/L (98-107); Glucose 101 mg/dL (74-99); Potassium 3.3 mmol/L (3.5-5.1); Sodium 141 mmol/L (137-145)
[2018-10-12] MEDS ORDERED: SENNOSIDES 8.6 MG TAB PO PRN (11:49)
--- NOTE | 2018-10-12 11:49 | P.PN ---
Subjective Progress Note Date: 10/12/18 Patient doing well no NV, tolerating diet Gas in ostomy bag. Objective - Vital Signs Vital signs: Vital Signs Temp 98.4 F 10/12/18 08:13 Pulse 73 10/12/18 08:13 Resp 16 10/12/18 08:00 BP 127/82 10/12/18 08:13 Pulse Ox 99 10/12/18 08:17 Intake & Output 10/11/18 10/12/18 10/12/18 18:59 06:59 18:59 Intake Total 296 Output Total 1700 Balance 296 -1700 Intake: Oral 296 Output: Urine 1700 Uretheral ([place]) 1700 Other: Voiding Method Indwelling Catheter Indwelling Catheter Toilet - Constitutional General appearance: Present: cooperative - Respiratory Details: nonlabored - Cardiovascular Rhythm: regular - Gastrointestinal Gastrointestinal Comment(s): S/NT/ND incision CDI ostomy pink patent with gas in bag - Psychiatric Psychiatric: Present: A&O x's 3 - Labs CBC & Chem 7: 10/12/18 08:30 10/12/18 08:30 Labs: Abnormal Lab Results - Last 24 Hours (Table) 10/12/18 10/12/18 Range/Units 08:30 08:30 RBC 3.59 L (3.80-5.40) m/uL Hgb 10.7 L (11.4-16.0) gm/dL Hct 32.9 L (34.0-46.0) % Lymphocytes # 0.6 L (1.0-4.8) k/uL Potassium 3.3 L (3.5-5.1) mmol/L Carbon Dioxide 36 H (22-30) mmol/L BUN 5 L (7-17) mg/dL Glucose 101 H (74-99) mg/dL Microbiology - Last 24 Hours (Table) 10/09/18 22:48 Blood Culture - Preliminary Blood No Growth after 48 hours Assessment and Plan Assessment: Perforated diverticulitis s/p ex lap with hartmanns procedure Plan: Patient is doing well, she may advance diet to soft. KVO IVF, pain is well controlled. Encouraged IS and ambulation.
[2018-10-12 13:59] LABS: Appearance,Urine Clear (Clear); Bilirubin,Urine Negative (Negative); Blood,Urine Negative (Negative); Color,Urine Light Yellow; Glucose,Urine (UA) Negative (Negative); Ketones,Urine Negative (Negative); Leukocyte Esterase,Urine Negative (Negative); Nitrite,Urine Negative (Negative); Protein,Urine Negative (Negative); Specific Gravity,Urine 1.004 (1.001-1.035); Urobilinogen,Urine <2.0 mg/dL (<2.0)
[2018-10-12] MEDS ORDERED: methylPREDNISolone SOD SUCCI 125 MG/2 ML VIAL IV STA (15:49)
--- NOTE | 2018-10-12 16:55 | P.PN ---
Subjective This is a pleasant 57 years old female with past medical history of hypertension , sleep apnea on CPAP, cholecystectomy and diverticulitis, never smoked. Patient Presents because of left lower quadrant abdominal pain that started yesterday at 5:30 PM as per patient. Patient describes the pain as sharp in LLQ , nonradiating, moderate to severe, however as per patient and the pain started as 2/10 in severity yesterday and this morning is getting worse about 6-8/10 in severity no nausea vomiting, no diarrhea. No chest pain or dyspnea. No dizziness. Patient went to urgent care in [place], [place] and there she had CAT scan of the abdomen where the report states perforated descending colon diverticulitis with a small free fluid and scattered free air so patient was transferred to [facility]. In [facility] [place] emergency room, patient was ambulatory with no peritoneal signs on physical examination as per emergency room note, however apparently this morning its getting worse and on my examination patient has left lower quadrant tenderness with rebound tenderness, without guarding. And morphine was not helping her so we increased her pain medication to Dilaudid, antibiotic was started as per surgical team recommendation. I discussed the case with Dr. lanza and he kindly took note of it and he'll come and evaluate the patient soon Patient states that her first episode of diverticulitis was in 08/25/2018, when she was treated with antibiotic, and she was improving until she has another episode and 09/27/2018 and she was improving with antibiotics again thoroughly yesterday when the pain returned to her and that's when she came to seek medical advice and her doctor advised her to go to emergency room. 10/09/2018 Patient status post exploratory laparotomy , status post colostomy on LLQ, Postop day #1. Patient was found in bed, in [id number] distress due to pain, however she does not want any more pain medication, she is a little bit more tired and lethargic. She is complaining of from her nasal congestion and ask for her Flonase back. Also she still benefit from some itching in the back and distress been treated symptomatically with Benadryl. Surgical team are following the patient. Labs and Vitas looks stable. 10/10/2018 Patient is more awake today, she has some cough with little productive phlegm. No chest pain or dyspnea. She has low-grade fever. Chest x-ray from yesterday showing right pulmonary infiltrate. Patient was on Zosyn, Levaquin was added. She is tolerating a clear liquid diet. She is passing gases only with no bowel movement. No leg pain but in the view of persistent fever we'll check Doppler to rule out DVT. Patient is already on DVT prophylaxis. Incentive spirometry is provided for the patient and encouraged to visit. Patient denies dizziness or headache. No weakness or abnormal sensation loss. WBC 7.2K, hemoglobin 10.4. Sodium 137, potassium 3.5. Creatinine 0.7. Glucose is controlled just above 100. Urinalysis last time check was not suspicious for infection. 10/11/2018 Patient continued to improve gradually, with less respiratory symptoms. No significant chest pain or dyspnea, however patient is developing a rash with [place] in the lower back and the upper thigh on the right side, patient received some Benadryl and by the time I saw the patient was improving. Patient was placed on hydrocortisone cream. No more fever in the last 24 hours. And no leukocytosis, symptoms are improving. Culture of the blood is negative so far. We'll continue with Levaquin while discontinue Zosyn. Surgical team are following the patient. 10/12/2018 Patient is tolerating diet well with no nausea vomiting. She didn't have bowel movement. About her abdominal pain is much controlled. She is passing gases only. She still have some rash in the back somewhat steroids of steroids is a provided for the patient besides the local treatment of hydrocortisone. Patient remains afebrile for more than 48 hours. Patient remains on Levaquin. Blood culture show no growth. Patient she has some urinary complaints but urine analysis was negative for infection or other abnormality. Review of systems CONSTITUTIONAL: No fever, no malaise, no fatigue. HEENT: No recent visual problems or hearing problems. Denied any sore throat. CARDIOVASCULAR: No orthopnea, PND, no palpitations, no syncope. PULMONARY: no hemoptysis. NEUROLOGICAL: No headaches, no weakness, no numbness. HEMATOLOGICAL: Denies any bleeding or petechiae. GENITOURINARY: Denies any burning micturition, frequency, or urgency. MUSCULOSKELETAL/RHEUMATOLOGICAL: Denies any joint pain, swelling, or any muscle pain. ENDOCRINE: Denies any polyuria or polydipsia. Medication: Tylenol, Benadryl, Pepcid, Flonase, heparin, Dilaudid, Ringer lactate, Levaquin, Zofran, Zosyn, ropivacaine. Objective - Vital Signs Vital signs: Vital Signs Temp 97.9 F 10/12/18 14:20 Pulse 74 10/12/18 15:38 Resp 16 10/12/18 15:38 BP 148/90 10/12/18 14:20 Pulse Ox 95 10/12/18 14:20 Intake & Output 10/11/18 10/12/18 10/12/18 18:59 06:59 18:59 Intake Total 296 Output Total 1700 Balance 296 -1700 Intake: Oral 296 Output: Urine 1700 Uretheral ([place]) 1700 Other: Voiding Method Indwelling Catheter Indwelling Catheter Toilet - Exam GENERAL: The patient is alert and oriented x3, not in any acute distress. Well developed, well nourished. Her lethargy has resolved HEENT: Pupils are round and equally reacting to light. EOMI. No scleral icterus. No conjunctival pallor. Normocephalic, atraumatic. No pharyngeal erythema. No thyromegaly. CARDIOVASCULAR: S1 and S2 present. No murmurs, rubs, or gallops. PULMONARY: Chest is clear to auscultation, no wheezing or crackles. -ABDOMEN: Soft, left lower quadrant colostomy back with some dark-colored fluid in it. MUSCULOSKELETAL: No joint swelling or deformity. EXTREMITIES: No cyanosis, clubbing, or pedal edema. NEUROLOGICAL: Gross neurological examination did not reveal any focal deficits. SKIN: No rashes. - Labs CBC & Chem 7: 10/12/18 08:30 10/12/18 08:30 Labs: Abnormal Lab Results - Last 24 Hours (Table) 10/12/18 10/12/18 Range/Units 08:30 08:30 RBC 3.59 L (3.80-5.40) m/uL Hgb 10.7 L (11.4-16.0) gm/dL Hct 32.9 L (34.0-46.0) % Lymphocytes # 0.6 L (1.0-4.8) k/uL Potassium 3.3 L (3.5-5.1) mmol/L Carbon Dioxide 36 H (22-30) mmol/L BUN 5 L (7-17) mg/dL Glucose 101 H (74-99) mg/dL Microbiology - Last 24 Hours (Table) 10/09/18 22:48 Blood Culture - Preliminary Blood No Growth after 48 hours Assessment and Plan Assessment: Possible perforated diverticulitis, status post exploratory laparotomy and LLQ colostomy History of Recurrent diverticulitis History of hypertension, history of sleep apnea on CPAP at home History of cholecystectomy Never smoked Plan: This is a pleasant 57 years old female who presents because of perforated diverticulitis. Call surgical consult. Keep nothing by mouth, continue with IV fluids, increased pain medication and given Dilaudid as morphine is not helping the patient. I agree with the Zosyn as recommended by the surgical service.Labs and medication were reviewed.. Continue same treatment. Continue with symptomatic treatment. Resume home medication. Monitor lytes and vitals. DVT and GI prophylaxis. Further recommendations of the clinical course of the patient DVT prophylaxis: Subcutaneous heparin GI Prophylaxis: Pepcid Prognosis is guarded
[2018-10-12] MEDS: DOCUSATE 100 MG CAP PO SCH (20:39)
[2018-10-12] MEDS: FLUTICASONE 50MCG/SPRAY NASAL 16GM EA NOSTRIL SCH (20:39)
[2018-10-13] MEDS: HEPARIN SODIUM,PORCINE 5,000 UNIT/ML 1 ML VIAL SQ SCH ×3 (00:02→15:38)
[2018-10-13] MEDS: LEVOFLOXACIN 500MG-D5W PMX 500 MG in DEXTROSE/WATER 1 100ML.BAG IVPB SCH (00:02)
[2018-10-13] MEDS: LACTATED RINGERS 1,000 ML IV SCH (03:37)
[2018-10-13] MEDS: FAMOTIDINE 20 MG/2 ML VIAL IV SCH (07:34)
[2018-10-13] MEDS: DOCUSATE 100 MG CAP PO SCH ×2 (07:35→20:11)
[2018-10-13] MEDS: HYDROcodone/APAP 5-325MG 1 EACH TAB PO PRN ×3 (07:35→20:19)
[2018-10-13 08:06] LABS: Anion Gap 10 mmol/L; Blood Urea Nitrogen 12 mg/dL (7-17); Calcium 9.6 mg/dL (8.4-10.2); Carbon Dioxide 30 mmol/L (22-30); Chloride 102 mmol/L (98-107); Glucose 112 mg/dL (74-99); Potassium 4.1 mmol/L (3.5-5.1); Sodium 142 mmol/L (137-145)
--- NOTE | 2018-10-13 12:42 | P.PN ---
Subjective Progress Note Date: 10/13/18 Patient doing well no NV, tolerating diet Gas in ostomy bag. Small amount of solid stool in bag Objective - Vital Signs Vital signs: Vital Signs Temp 97.7 F 10/13/18 07:28 Pulse 79 10/13/18 07:28 Resp 16 10/13/18 07:28 BP 151/88 10/13/18 07:28 Pulse Ox 97 10/13/18 07:28 Intake & Output 10/12/18 10/13/18 10/13/18 18:59 06:59 18:59 Intake Total 600 500 240 Balance 600 500 240 Intake: Intake, IV Titration 300 Amount Lactated Ringers 1,000 ml 200 @ 20 mls/hr IV .Q24H [facility] Rx#:[id number] Levofloxacin 500Mg-D5w 100 Pmx 500 mg In Dextrose/ Water 1 100ml.bag @ 100 mls/hr IVPB Q24H [facility] Rx#: [id number] Oral 600 200 240 Other: Voiding Method Toilet Toilet # Voids 1 - Constitutional General appearance: Present: cooperative - Respiratory Details: Nonlabored - Cardiovascular Rhythm: regular - Gastrointestinal Gastrointestinal Comment(s): S/NT/ND incision CDI Ostomy pink patent with gas and stool in bag - Psychiatric Psychiatric: Present: A&O x's 3 - Labs CBC & Chem 7: 10/12/18 08:30 10/13/18 07:17 Labs: Abnormal Lab Results - Last 24 Hours (Table) 10/13/18 Range/Units 07:17 Glucose 112 H (74-99) mg/dL Microbiology - Last 24 Hours (Table) 10/09/18 22:48 Blood Culture - Preliminary Blood No Growth after 72 hours Assessment and Plan Assessment: Perforated diverticulitis s/p ex lap with hartmanns procedure Plan: Patient is doing well, continue soft diet as tolerated. KVO IVF, pain is well controlled. Encouraged IS and ambulation. Anticipate DC home tomorrow
[2018-10-13] MEDS ORDERED: metroNIDAZOLE-NS PMX 500 MG in SALINE 1 100ML.BAG IVPB SCH (17:15)
--- NOTE | 2018-10-13 19:43 | P.PN ---
Subjective This is a pleasant 57 years old female with past medical history of hypertension , sleep apnea on CPAP, cholecystectomy and diverticulitis, never smoked. Patient Presents because of left lower quadrant abdominal pain that started yesterday at 5:30 PM as per patient. Patient describes the pain as sharp in LLQ , nonradiating, moderate to severe, however as per patient and the pain started as 2/10 in severity yesterday and this morning is getting worse about 6-8/10 in severity no nausea vomiting, no diarrhea. No chest pain or dyspnea. No dizziness. Patient went to urgent care in [place], [place] and there she had CAT scan of the abdomen where the report states perforated descending colon diverticulitis with a small free fluid and scattered free air so patient was transferred to [facility]. In [facility] [place] emergency room, patient was ambulatory with no peritoneal signs on physical examination as per emergency room note, however apparently this morning its getting worse and on my examination patient has left lower quadrant tenderness with rebound tenderness, without guarding. And morphine was not helping her so we increased her pain medication to Dilaudid, antibiotic was started as per surgical team recommendation. I discussed the case with Dr. lanza and he kindly took note of it and he'll come and evaluate the patient soon Patient states that her first episode of diverticulitis was in 08/25/2018, when she was treated with antibiotic, and she was improving until she has another episode and 09/27/2018 and she was improving with antibiotics again thoroughly yesterday when the pain returned to her and that's when she came to seek medical advice and her doctor advised her to go to emergency room. 10/09/2018 Patient status post exploratory laparotomy , status post colostomy on LLQ, Postop day #1. Patient was found in bed, in [id number] distress due to pain, however she does not want any more pain medication, she is a little bit more tired and lethargic. She is complaining of from her nasal congestion and ask for her Flonase back. Also she still benefit from some itching in the back and distress been treated symptomatically with Benadryl. Surgical team are following the patient. Labs and Vitas looks stable. 10/10/2018 Patient is more awake today, she has some cough with little productive phlegm. No chest pain or dyspnea. She has low-grade fever. Chest x-ray from yesterday showing right pulmonary infiltrate. Patient was on Zosyn, Levaquin was added. She is tolerating a clear liquid diet. She is passing gases only with no bowel movement. No leg pain but in the view of persistent fever we'll check Doppler to rule out DVT. Patient is already on DVT prophylaxis. Incentive spirometry is provided for the patient and encouraged to visit. Patient denies dizziness or headache. No weakness or abnormal sensation loss. WBC 7.2K, hemoglobin 10.4. Sodium 137, potassium 3.5. Creatinine 0.7. Glucose is controlled just above 100. Urinalysis last time check was not suspicious for infection. 10/11/2018 Patient continued to improve gradually, with less respiratory symptoms. No significant chest pain or dyspnea, however patient is developing a rash with [place] in the lower back and the upper thigh on the right side, patient received some Benadryl and by the time I saw the patient was improving. Patient was placed on hydrocortisone cream. No more fever in the last 24 hours. And no leukocytosis, symptoms are improving. Culture of the blood is negative so far. We'll continue with Levaquin while discontinue Zosyn. Surgical team are following the patient. 10/12/2018 Patient is tolerating diet well with no nausea vomiting. She didn't have bowel movement. About her abdominal pain is much controlled. She is passing gases only. She still have some rash in the back somewhat steroids of steroids is a provided for the patient besides the local treatment of hydrocortisone. Patient remains afebrile for more than 48 hours. Patient remains on Levaquin. Blood culture show no growth. Patient she has some urinary complaints but urine analysis was negative for infection or other abnormality. 10/13/2018 Patient today had a small bowel movement. She is tolerating soft diet well. No abdominal pain more than expected and usual. No nausea vomiting. However patient still have persistent rash in her right lower trunk and right upper thigh. Suspect is to do to Levaquin as/at. After starting the antibiotic. Therefore we'll stop the Levaquin and place the patient on oral Cipro and add Flagyl today. Surgical team R following the case. Review of systems CONSTITUTIONAL: No fever, no malaise, no fatigue. HEENT: No recent visual problems or hearing problems. Denied any sore throat. CARDIOVASCULAR: No orthopnea, PND, no palpitations, no syncope. PULMONARY: no hemoptysis. NEUROLOGICAL: No headaches, no weakness, no numbness. HEMATOLOGICAL: Denies any bleeding or petechiae. GENITOURINARY: Denies any burning micturition, frequency, or urgency. MUSCULOSKELETAL/RHEUMATOLOGICAL: Denies any joint pain, swelling, or any muscle pain. ENDOCRINE: Denies any polyuria or polydipsia. Medication: Tylenol, Benadryl, Pepcid, Flonase, heparin, Dilaudid, Ringer lactate, Levaquin, Zofran, Zosyn, ropivacaine. Objective - Vital Signs Vital signs: Vital Signs Temp 98.0 F 10/13/18 19:10 Pulse 73 10/13/18 19:10 Resp 16 10/13/18 19:10 BP 147/86 10/13/18 19:10 Pulse Ox 98 10/13/18 19:10 Intake & Output 10/13/18 10/13/18 10/14/18 06:59 18:59 06:59 Intake Total 500 960 Balance 500 960 Intake: Intake, IV Titration 300 Amount Lactated Ringers 1,000 ml 200 @ 20 mls/hr IV .Q24H [facility] Rx#:[id number] Levofloxacin 500Mg-D5w 100 Pmx 500 mg In Dextrose/ Water 1 100ml.bag @ 100 mls/hr IVPB Q24H [facility] Rx#: [id number] Oral 200 960 Other: Voiding Method Toilet # Voids 1 - Exam GENERAL: The patient is alert and oriented x3, not in any acute distress. Well developed, well nourished. Her lethargy has resolved HEENT: Pupils are round and equally reacting to light. EOMI. No scleral icterus. No conjunctival pallor. Normocephalic, atraumatic. No pharyngeal erythema. No thyromegaly. CARDIOVASCULAR: S1 and S2 present. No murmurs, rubs, or gallops. PULMONARY: Chest is clear to auscultation, no wheezing or crackles. -ABDOMEN: Soft, left lower quadrant colostomy back with some dark-colored fluid in it. MUSCULOSKELETAL: No joint swelling or deformity. EXTREMITIES: No cyanosis, clubbing, or pedal edema. NEUROLOGICAL: Gross neurological examination did not reveal any focal deficits. SKIN: No rashes. - Labs CBC & Chem 7: 10/12/18 08:30 10/13/18 07:17 Labs: Abnormal Lab Results - Last 24 Hours (Table) 10/13/18 Range/Units 07:17 Glucose 112 H (74-99) mg/dL Microbiology - Last 24 Hours (Table) 10/09/18 22:48 Blood Culture - Preliminary Blood No Growth after 72 hours Assessment and Plan Assessment: Possible perforated diverticulitis, status post exploratory laparotomy and LLQ colostomy History of Recurrent diverticulitis History of hypertension, history of sleep apnea on CPAP at home History of cholecystectomy Never smoked Plan: This is a pleasant 57 years old female who presents because of perforated diverticulitis. Call surgical consult. Keep nothing by mouth, continue with IV fluids, increased pain medication and given Dilaudid as morphine is not helping the patient. I agree with the Zosyn as recommended by the surgical service.Labs and medication were reviewed.. Continue same treatment. Continue with symptomatic treatment. Resume home medication. Monitor lytes and vitals. DVT and GI prophylaxis. Further recommendations of the clinical course of the patient DVT prophylaxis: Subcutaneous heparin GI Prophylaxis: Pepcid Prognosis is guarded
[2018-10-13] MEDS ORDERED: methylPREDNISolone SOD SUCCI 125 MG/2 ML VIAL IV STA (20:00)
[2018-10-13] MEDS ORDERED: diphenhydrAMINE 50 MG/ML 1 ML VIAL IVP PRN (20:01)
[2018-10-13] MEDS ORDERED: diphenhydrAMINE 50 MG/ML 1 ML VIAL IVP STA (20:01)
[2018-10-13] MEDS: CIPROFLOXACIN HCL 500 MG TAB PO SCH (20:11)
[2018-10-13] MEDS: FAMOTIDINE 20 MG TAB PO SCH (20:11)
[2018-10-13] MEDS: FLUTICASONE 50MCG/SPRAY NASAL 16GM EA NOSTRIL SCH (20:12)
[2018-10-13] MEDS ORDERED: LEVOFLOXACIN 500 MG TAB PO SCH (21:00)
[2018-10-14] MEDS: HYDROcodone/APAP 5-325MG 1 EACH TAB PO PRN ×4 (00:07→17:33)
[2018-10-14] MEDS: HEPARIN SODIUM,PORCINE 5,000 UNIT/ML 1 ML VIAL SQ SCH ×2 (00:07→08:22)
[2018-10-14] MEDS: LACTATED RINGERS 1,000 ML IV SCH (00:20)
[2018-10-14] MEDS: FAMOTIDINE 20 MG TAB PO SCH (08:20)
[2018-10-14] MEDS: DOCUSATE 100 MG CAP PO SCH (08:20)
[2018-10-14] MEDS: CIPROFLOXACIN HCL 500 MG TAB PO SCH (08:20)
[2018-10-14] MEDS: HYDROCORTISONE 1% CREAM 30 GM TUBE TOPICAL PRN (13:12)
--- NOTE | 2018-10-14 13:41 | P.PN ---
Subjective Patient doing well no NV, tolerating diet Gas in ostomy bag. Stool in bag Objective - Vital Signs Vital signs: Vital Signs Temp 96.9 F L 10/14/18 08:39 Pulse 72 10/14/18 08:39 Resp 12 10/14/18 08:39 BP 154/80 10/14/18 08:39 Pulse Ox 97 10/14/18 01:35 Intake & Output 10/13/18 10/14/18 10/14/18 18:59 06:59 18:59 Intake Total 960 450 Balance 960 450 Intake: Oral 960 450 Other: Voiding Method Toilet Toilet - Constitutional General appearance: Present: cooperative - Respiratory Details: nonlabored - Cardiovascular Rhythm: regular - Gastrointestinal Gastrointestinal Comment(s): S/NT/ND incision CDI Ostomy patent with stool in bag - Labs CBC & Chem 7: 10/12/18 08:30 10/13/18 07:17 Labs: Microbiology - Last 24 Hours (Table) 10/09/18 22:48 Blood Culture - Preliminary Blood No Growth after 96 hours Assessment and Plan Assessment: Perforated diverticulitis s/p ex lap with hartmanns procedure Plan: Patient is doing well, ok for DC home today from surgical standpoint. [place] and colace script in chart she can follow up with me in 1-2 weeks. No need for abx from surgical/abdominal standpoint.
[2018-10-14 14:21] VITALS: BP 138/83; PULSE 70; RESP 17; TEMP 97.7
[2018-10-14 14:27] VITALS: BMI 28.9
== END 2018-10-14 18:04 | disposition home health service (06) | DRG 331 ==
LOC: EC 03:07 → 4SSUR 03:35
PROVIDERS: ADMIT Hospitalist; ATTEND Hospitalist
PROC: 0D1N0Z4 Bypass Sigmoid Colon to Cutaneous, Open Approach (ICD-10-PCS; principal; 2018-10-08 12:38)
PROC: 0DBN0ZZ Excision of Sigmoid Colon, Open Approach (ICD-10-PCS; principal; 2018-10-08 12:38)
DX: K57.20 Diverticulitis of large intestine with perforation and abscess without bleeding (principal); G47.30 Sleep apnea, unspecified; I10 Essential (primary) hypertension; Z80.0 Family history of malignant neoplasm of digestive organs; Z90.49 Acquired absence of other specified parts of digestive tract; Z79.51 Long term (current) use of inhaled steroids; Z79.899 Other long term (current) drug therapy; Z79.1 Long term (current) use of non-steroidal anti-inflammatories (NSAID); Z99.89 Dependence on other enabling machines and devices; L27.0 Generalized skin eruption due to drugs and medicaments taken internally; T36.8X5A Adverse effect of other systemic antibiotics, initial encounter
CPT/HCPCS: 36415; 71046; 80048; 80053; 81003; 83690; 85025; 85610; 85730; 86850; 86900; 86901; 87040; 88307; 93970; 94760; 99285

== ENCOUNTER → 2022-07-09 | Outpatient (CLI) | payer SELFPAY ==
[2022-07-09 23:46] LABS: Immunoglobulin E 4.91 IU/mL (0.00-114.00)
[2022-07-10 03:54] LABS: Clam IgE <0.10 kU/L; Codfish IgE <0.10 kU/L; Egg White IgE <0.10 kU/L; Peanut IgE <0.10 kU/L; Scallop IgE <0.10 kU/L; Shrimp IgE <0.10 kU/L; Soybean IgE <0.10 kU/L; Walnut IgE (Food) <0.10 kU/L
== END | disposition home or self-care (01) ==
LOC: LABWHC1 15:37
PROVIDERS: ATTEND Otolaryngology
DX: J30.89 Other allergic rhinitis (principal)
CPT/HCPCS: 36415; 82785; 86001; 86003